=== PATIENT | male | born 1975 | race Hispanic/Latino ===

== ENCOUNTER 2024-11-17 22:54 | Emergency (ER) | payer OTHER ==
[~2024-11-17] VITALS: Ht 177.8 cm; Wt 86.2 kg
[2024-11-17 23:00] VITALS: TEMP 98.2
[2024-11-18] MEDS: TETANUS/DIPHTHERIA TOX ADULT 0.5 ML SYR IM ONE (00:10)
[2024-11-18 01:38] LABS: BASOPHILS % 0.5 % (0.0-1.0); EOSINOPHILS % 0.7 % (0.0-6.0); LYMPHOCYTES % 22.5 % (18.0-39.1); MONOCYTES % 5.2 % (4.4-11.3); NEUTROPHILS % 70.8 % (38.7-80.0); RED CELL DISTRIBUTION WIDTH 13.2 % (11.7-14.4)
[2024-11-18 02:00] LABS: EST GLOMERULAR FILTRATION RATE 108.0 ML/MIN (>=60)
[2024-11-18 02:03] VITALS: PULSE 93; RESP 16; O2SAT 100
== END 2024-11-18 03:02 | disposition other institution (70) ==
LOC: ER 11-18 00:07
DX: S02.2XXA Fracture of nasal bones, initial encounter for closed fracture (principal); S01.511A Laceration without foreign body of lip, initial encounter; S50.352A Superficial foreign body of left elbow, initial encounter; S40.812A Abrasion of left upper arm, initial encounter; S40.811A Abrasion of right upper arm, initial encounter; F10.129 Alcohol abuse with intoxication, unspecified; Y04.0XXA Assault by unarmed brawl or fight, initial encounter; Y92.89 Other specified places as the place of occurrence of the external cause; I10 Essential (primary) hypertension; G62.9 Polyneuropathy, unspecified; F17.210 Nicotine dependence, cigarettes, uncomplicated
CPT/HCPCS: 36415; 70450; 70486; 71046; 72125; 73080; 73130; 80048; 80320; 85025; 90471; 90714; 99284; J0295; J0690